=== PATIENT | female | born 1950 | race Two or more races ===

== ENCOUNTER 2019-03-14 15:46 | Emergency (ER) | payer MEDICARE, BC ==
[~2019-03-14] VITALS: Ht 162.6 cm; Wt 73.0 kg
[2019-03-14 15:58] VITALS: BP 120/87
== END 2019-03-14 17:02 | disposition home or self-care (01) ==
LOC: ED 16:45
DX: B34.9 Viral infection, unspecified (principal); R07.89 Other chest pain; I10 Essential (primary) hypertension
CPT/HCPCS: 71046; 99283

== ENCOUNTER 2019-04-12 09:34 | Emergency (ER) | payer MEDICARE, BC ==
[~2019-04-12] VITALS: Ht 160 cm; Wt 73.6 kg
[2019-04-12 09:38] VITALS: BP 164/79
--- NOTE | 2019-04-12 10:07 | NUR ---
PT PRESENTS TO ED SEEKING REFILL FOR ANTIHYPERTENSIVES, VITAMIN D, AND STATIN. PT STATES PCP MOVED AND SHE HAS NOT ESTABLISHED WITH A NEW ONE YET. PT DENIES ANY SYMPTOMS. PT IS A&OX4, RESPS EVEN AND UNLABORED, DENIES PAIN.
--- NOTE | 2019-04-12 11:07 | NUR ---
report to break REILLY Mcintosh.
--- NOTE | 2019-04-12 11:42 | NUR ---
Break RN: Patient & Caregiver given discharge instructions and Rx, they have confirmed that they understand the instructions. Patient ambulatory with steady gait.
== END 2019-04-12 11:43 | disposition home or self-care (01) ==
LOC: ED 11:32
DX: I10 Essential (primary) hypertension (principal); E78.5 Hyperlipidemia, unspecified; Z76.0 Encounter for issue of repeat prescription
CPT/HCPCS: 99283